=== PATIENT | male | born 1975 | race Caucasian/White ===

== ENCOUNTER 2019-01-26 21:24 | Emergency (ER) | payer OTHER ==
[2019-01-26 21:40] VITALS: BP 122/81; PULSE 106; TEMP 98.3; BMI 32.3
--- NOTE | 2019-01-26 22:00 | PDOC ---
History of Present Illness - General Chief Complaint: Ear Problem Stated Complaint: EAR PAIN Time Seen by Provider: 01/26/19 21:48 History Source: Patient Exam Limitations: No Limitations Past History - Past Medical History Allergies/Adverse Reactions: Allergies Allergy/AdvReac Type Severity Reaction Status Date / Time No Known Allergies Allergy Verified 01/26/19 21:40 Home Medications: Ambulatory Orders Ampicillin Trihydrate 500 mg PO ASDIR 01/26/19 Neomycin/Polymyxn/Hc [Cortisporin Otic Solution -] 5 drop AD QID #1 bottle 01/26 COPD: No Hypercholesterolemia: Yes - Surgical History Abdominal Surgery: Yes (hernia) - Immunization History Immunization Up to Date: No - Suicide/Smoking/Psychosocial Hx Smoking History: Unknown if ever smoked Have you smoked in the past 12 months: No Number of Cigarettes Smoked Daily: 3 Information on smoking cessation initiated: No Hx Alcohol Use: No Drug/Substance Use Hx: No Substance Use Type: None *Physical Exam - Vital Signs Last Vital Signs Temp Pulse Resp BP Pulse Ox 98.3 F 106 H 16 122/81 100 01/26/19 21:37 01/26/19 21:37 01/26/19 21:37 01/26/19 21:37 01/26/19 21:37 - Physical Exam HEENT: positive: Pharynx Normal, Other (+R ear canal narrowing, no drainage, no mastoid tenderness, +pain on pulling R auricle; L ear unremarkable). negative: Nasal Congestion, Rhinorrhea Respiratory/Chest: positive: Lungs Clear, Normal Breath Sounds. negative: Respiratory Distress Cardiovascular: positive: Regular Rhythm, Regular Rate, S1, S2. negative: Murmur Integumentary: positive: Normal Color Neurologic: positive: Alert, Normal Mood/Affect Medical Decision Making - Medical Decision Making 43 y/o M with no sig pmh presents with R ear pain x 2-3 days. Denies fever, tinnitus, hearing loss, ear drainage, dizziness, congestion, sore throat, cough R ear otitis externa Will d/c on abx 01/26/19 21:57 *DC/Admit/Observation/Transfer Diagnosis at time of Disposition: Otitis externa Qualifiers: Otitis externa type: unspecified type Chronicity: acute Laterality: right Qualified Code(s): H60.501 - Unspecified acute noninfective otitis externa, right ear - Discharge Dispostion Disposition: HOME Condition at time of disposition: Stable Decision to Admit order: No - Prescriptions Prescriptions: Neomycin/Polymyxn/Hc [Cortisporin Otic Solution -] 5 drop AD QID #1 bottle - Referrals - Patient Instructions Printed Discharge Instructions: DI for Otitis Externa Additional Instructions: Thank you for choosing [facility]. It was a pleasure taking care of you. Use prescribed ear drops in right ear four times daily for the next 7 days Follow-up with your doctor in 1 week Return to the Emergency Department if your symptoms worsen or persist, you have fever, worsening pain, discharge, hearing loss, dizziness or other concerning symptoms. - Post Discharge Activity
== END 2019-01-26 22:14 | disposition home or self-care (01) ==
LOC: JERFT 21:24
DX: H60.501 Unspecified acute noninfective otitis externa, right ear (principal); E78.00 Pure hypercholesterolemia, unspecified
CPT/HCPCS: 99281-25